=== PATIENT | female | born 1960 | race Caucasian/White ===

== ENCOUNTER → 2018-09-05 09:51 | Outpatient (CLI) | payer OTHER, SELFPAY ==
--- NOTE | 2018-09-05 10:05 | EKG12_ITS ---
Test Reason : PREOP Blood Pressure : / mmHG Vent. Rate : 054 BPM Atrial Rate : 054 BPM P-R Int : 168 ms QRS Dur : 106 ms QT Int : 412 ms P-R-T Axes : -13 -48 -02 degrees QTc Int : 390 ms Sinus bradycardia Left anterior fascicular block Poor R wave progression Nonspecific T wave abnormality Abnormal ECG Confirmed by YONATAN PRIEST, KIT ([id number]), telegraph editor DIONISIO HOGAN ([id number]) on 09/07/2018 1:33:57 PM Referred By: Kemal Tran Confirmed By:KIT TAM MD
[2018-09-05 10:27] LABS: Absolute Lymphocyte Count 2.03 X10^3/ul (0.83-4.51); Absolute Neutrophil Count 4.8 X10^3/uL (2.0-7.7); Basophil# 0.01 X10^3/uL; Basophil% 0.1 % (0-1); Eosinophil# 0.13 X10^3/uL; Eosinophils% 1.7 % (0-5); Hematocrit 41.1 % (37-47); Hemoglobin 13.6 g/dl (12.0-15.0); Lymphocyte # 2.03 X10^3/ul (4.0); Lymphocyte % 26.7 % (19-41); Mean Corp Hgb Conc 33.1 g/gl (32-36); Mean Corpuscular Hgb 30.4 pg (27.0-32.0); Mean Corpuscular Volume 91.7 fL (81-99); Mean Platelet Vol. 9.4 fl (6.2-12.0); Monocyte# 0.64 X10^3/uL; Monocyte% 8.4 % (0-10); Neutrophil # 4.77 X10^3/uL (2.7-7.7); Neutrophil % 62.7 % (47-70); Platelet Count 220 K/mm3 (150-450); RBC Distribution Width CV 13.8 % (11.6-14.6); RBC Distribution Width SD 45.8 fl (35.1-43.9); Red Blood Count 4.48 M/mm3 (4.2-5.4); White Blood Count 7.6 K/mm3 (4.4-11.0)
[2018-09-05 10:29] LABS: POSITIVE COUNT NO; POSITIVE DIFFERENTIAL NO; POSITIVE MORPHOLOGY NO
[2018-09-05 10:51] LABS: Anion Gap 6 (5-15); BUN 16 mg/dL (7-18); BUN/Creat Ratio 21.8 RATIO (10-20); Calcium,Total 9.3 mg/dL (8.5-10.1); Chloride 108 mmol/L (98-107); Creatinine, Serum 0.73 mg/dL (0.55-1.02); EST Glomerular Filtration Rate 86 mL/min (>60); Est Glom Filt Rate - Afr Amer 104 mL/min (>60); Glucose 85 mg/dL (74-106); Potassium 4.1 mmol/L (3.5-5.1); Sodium Level 142 mmol/L (136-145)
== END ==
PROVIDERS: Family Provider Family Medicine; PCP Family Medicine; Referring Provider Surgery; Visit Provider Surgery
DX: Z01.810 Encounter for preprocedural cardiovascular examination (principal); I87.2 Venous insufficiency (chronic) (peripheral); I83.11 Varicose veins of right lower extremity with inflammation; M79.661 Pain in right lower leg; M79.89 Other specified soft tissue disorders
CPT/HCPCS: 36415; 80048; 85025; 93005

== ENCOUNTER → 2018-09-18 13:53 | Outpatient (CLI) | payer OTHER, SELFPAY ==
--- NOTE | 2018-09-18 13:57 | VDLE_ITS ---
Reason For Study: RLE Pain RIGHT LEFT CFV is compressible, spontaneous, phasic, CFV is compressible, spontaneous, phasic, competent and demonstrates normal competent, and demonstrates normal augmentation. augmentation. FV is compressible, spontaneous, phasic, competent and demonstrates normal augmentation. POP V is compressible, spontaneous, phasic, competent and demonstrates normal augmentation. T/P Trunk is compressible. PTV is compressible. RT PerV is compressible. GVS, SSV and Vein of Giacomini are occluded s/p EVLA. Procedure Exam performed in department. A preliminary report was called and/or faxed to Dr. Tran. <> Interpretation Summary Deep veins of the right lower extremity are patent and compressible segmentally. There is no evidence of right lower extremity deep vein thrombosis. Valvular competence appears intact within the proximal deep venous system on the right . The right great saphenous vein, small saphenous vein, and vein of Giacomini are occluded, consistent with a recent endothermal ablation procedure. Ordering Physician: Tam Reyna Referring Physician: Kemal Tran Performed By: Miguel Daniel RVT and Student
== END ==
PROVIDERS: Family Provider Family Medicine; PCP Family Medicine; Referring Provider Surgery; Visit Provider Surgery
DX: I87.2 Venous insufficiency (chronic) (peripheral) (principal); I83.10 Varicose veins of unspecified lower extremity with inflammation; M79.609 Pain in unspecified limb; Z98.890 Other specified postprocedural states
CPT/HCPCS: 93971

== ENCOUNTER → 2018-11-29 13:27 | Outpatient (CLI) | payer OTHER, SELFPAY ==
[2018-12-04 16:51] LABS: HPV HC, High Risk Negative (Negative)
--- OUTSIDE RECORDS SUMMARY | 2019-02-03 08:01 | XMS RPT_ITS ---
:1960 Author Organization OHIP Care Team Providers Name Role Phone Ramón Meier Attending Unavailable Axel, Tam A Referring Unavailable Axel, Tam A Primary Care Unavailable Ramón Meier Attending Unavailable Axel, Tam Sandoval Primary Care Unavailable Axel, Tam A Admitting Unavailable Axel, Tam A Attending Unavailable Axel, Tam A Primary Care Unavailable Axel, Tam Primary Care Unavailable Nova [place] Attending Unavailable Kemal Tran Attending Unavailable Tam Reyna Primary Care Unavailable Kemal Tran Referring Unavailable Kemal Tran Attending Unavailable Kemal Tran Referring Unavailable Tam Reyna Primary Care Unavailable Akira Tam Attending Unavailable Kemal Tran Referring Unavailable PROBLEMS PROBLEMS DATE TYPE CONDITION / CODE ATTENDING STATUS SOURCE 11/29/2018 Unknown Z12.4 - Encounter for Nova Gillette Active [place] screening for Community malignant neoplasm of Hospital cervix / Z12.4(ICD-10) Repository 09/05/2018 Unknown Z01.810 - Encounter Kemal Tran Active [place] for preprocedural [facility] cardiovascular [facility] examination / Repository Z01.810(ICD-10) 09/05/2018 Unknown I87.2 - Venous Kemal Tran Active [place] insufficiency Community (chronic) (peripheral) Hospital / I87.2(ICD-10) Repository 09/05/2018 Unknown I83.11 - Varicose Kemal Tran Active [place] veins of right lower Community extremity with Hospital inflammation / Repository I83.11(ICD-10) 09/05/2018 Unknown M79.661 - Pain in Kemal Tran Active [place] right lower leg / Community M79.661(ICD-10) Hospital Repository 09/05/2018 Unknown M79.89 - Other Kemal Tran Active [place] specified soft tissue Community disorders / Hospital M79.89(ICD-10) Repository 09/26/2018 Unknown R00.1 - Bradycardia, [place], Active [place] unspecified / [facility] R00.1(ICD-10) Hospital Repository 09/26/2018 Unknown R94.31 - Abnormal [place], Active [place] electrocardiogram [facility] [ECG] [EKG] / Hospital R94.31(ICD-10) Repository PROCEDURES PROCEDURES No Procedure Records FoundRESULTS RESULTS PAP I-G HPV HI Collected: 11/29/2018 Status: F Source: [place] RISK 1:30 PM [facility] REPOSITORY Order Comment: CYTOLOGY INFORMATION: - CLINICAL INFORMATION: POSTMENOPAUSAL - DATE LMP/MENOPAUSE: MENOPAUSE - COLLECTION VIAL: Thin Prep Vial - PROGRESSIVE CARE UNIT REGISTERED NURSE SOURCE:CERVIX CERVICAL - COLLECTION TECHNIQUE:CERVIX BROOM CX BROOM ONLY Specimen Comment: [id number] Specimen Comment: Source.............Cervix Specimen Comment: Other..............Post Menopausal Specimen Comment: No. of containers..01 ThinPrep Vial TYPE CODE TESTS RESULT OUT OF RANGE REFERENCE UNITS LAB L7400.0800 . Normal DIAGN Comment Result Comment: NEGATIVE FOR INTRAEPITHELIAL LESION OR MALIGNANCY. LAB L7400.0900 . Normal ADEQ Comment Result Comment: Satisfactory for evaluation. Endocervical and/or squamous metaplastic cells (endocervical component) are present. LAB L7400.1400 . Normal PERFORM Comment Result Comment: Jessica Hernandez, Applique Cutter LAB L7400.2575 . Normal TEST METHOD Comment Result Comment: This liquid based ThinPrep(R) pap test was screened with the use of an image guided system. LAB L7400.2600 . Normal . COMM LAB L7400.2700 . Normal PAPSMR Comment Result Comment: The Pap smear is a screening test designed to aid in the detection of premalignant and malignant conditions of the uterine cervix. It is not a diagnostic procedure and should not be used as the sole means of detecting cervical cancer. Both false-positive and false-negative reports do occur. LAB L7400.2950 Negative Normal HPV Negative HC,HGH RISK Result Comment: This high-risk HPV test detects thirteen high-risk types (16/18/31/33/35/39/45/51/52/56/58/59/68) without differentiation. Performed at: - [facility] [id number] Manager Cath Lab: Ashlee Perkins MD, Phone: [phone] Performed at: =G - [facility] [address] [id number] Manager Cath Lab: Ashlee Perkins MD, Phone: [phone] Performed By: #### L7400.0375 #### [facility] (refer to report for specific site) refer to report for address and phone number VENOUS DUPLEX LOWER Observed: 09/18/2018 Status: F Source: [place] EXTREMITY 4:32 PM [facility] Cardiovascular Services [address] [place] [address] Venous Duplex US, Unilateral 09/18/18 1400 MR#: [id number] Acct: [id number] Name: IGOR SANDOVAL Rep #: [id number] : 1960 58 From: Kemal Tran MD Attending Dr: Kemal Tran MD Status: REG CLI Ordering Dr: Kemal Tran MD Date: 09/18/18 Location: [facility] Sex: F C Admitted: Reason For Study: RLE Pain RIGHT LEFT CFV is compressible, spontaneous, phasic, CFV is compressible, spontaneous, phasic, competent and demonstrates normal competent, and demonstrates normal augmentation. augmentation. FV is compressible, spontaneous, phasic, competent and demonstrates normal augmentation. POP V is compressible, spontaneous, phasic, competent and demonstrates normal augmentation. T/P Trunk is compressible. PTV is compressible. RT PerV is compressible. GVS, SSV and Vein of Giacomini are occluded s/p EVLA. Procedure Exam performed in department. A preliminary report was called and/or faxed to Dr. Tran. <> Interpretation Summary Deep veins of the right lower extremity are patent and compressible segmentally. There is no evidence of right lower extremity deep vein thrombosis. Valvular competence appears intact within the proximal deep venous system on the right . The right great saphenous vein, small saphenous vein, and vein of Giacomini are occluded, consistent with a recent endothermal ablation procedure. Ordering Physician: Tam Reyna Referring Physician: Kemal Tran Performed By: Miguel Daniel RVT and Student 09/18/18 1631 Date Kemal Tran MD CC: Kemal Tran MD; Tam Reyna DO Date Dictated: 09/18/18 1400 Date Transcribed: 09/18/18 1631 [employer] Helper: Signed 12 LEAD ELECTROCARDIOGRAM Observed: 09/07/2018 Status: F Source: [place] 1:34 PM [facility] Cardiovascular Services [address] [place] [address] 12 Lead EKG 09/05/18 1010 MR#: [id number] Acct: [id number] Name: IGOR SANDOVAL Rep #: [id number] : 1960 58 From: Akira Tam MD Attending Dr: Kemal Tran MD Status: REG CLI Ordering Dr: Kemal Tran MD Date: 09/05/18 Location: LAB.FUTURE Sex: F C Admitted: Test Reason : PREOP Blood Pressure : / mmHG Vent. Rate : 054 BPM Atrial Rate : 054 BPM P-R Int : 168 ms QRS Dur : 106 ms QT Int : 412 ms P-R-T Axes : -13 -48 -02 degrees QTc Int : 390 ms Sinus bradycardia Left anterior fascicular block Poor R wave progression Nonspecific T wave abnormality Abnormal ECG Confirmed by YONATAN PRIEST, AKIRA ([id number]), school photograph editor DIONISIO HOGAN ([id number]) on 09/07/2018 1:33:57 PM Referred By: Kemal Tran Confirmed By:AKIRA TAM MD 09/07/18 1334 Date Akira Tam MD CC: Kemal Tran MD; Tam Reyna DO Signed CBC W/DIFF, AUTOMATED Collected: 09/05/2018 Status: F Source: [place] 9:58 AM [facility] [place] TYPE CODE TESTS RESULT OUT OF RANGE REFERENCE UNITS LAB L100.1000 4.4-11.0 K/mm3 Normal WBC 7.6 LAB L100.1200 4.2-5.4 M/mm3 Normal RBC 4.48 LAB L100.1300 12.0-15.0 g/dl Normal HGB 13.6 LAB L100.1400 37-47 % Normal HCT 41.1 LAB L100.1500 81-99 fL Normal MCV 91.7 LAB L100.1600 27.0-32.0 pg Normal MCH 30.4 LAB L100.1700 32-36 g/gl Normal MCHC 33.1 LAB L100.1810 11.6-14.6 % Normal RDW CV 13.8 LAB L100.1820 35.1-43.9 fl High RDW SD 45.8 LAB L100.1900 150-450 K/mm3 Normal PLT 220 LAB L100.2000 6.2-12.0 fl Normal MPV 9.4 LAB L100.2100 47-70 % Normal NEUT% 62.7 LAB L100.2200 19-41 % Normal LY% 26.7 LAB L100.2300 0-10 % Normal MONO% 8.4 LAB L100.2400 0-5 % Normal EO% 1.7 LAB L100.2500 0-1 % Normal BASO% 0.1 LAB L100.2550 0.0-0.9 % Normal IM GRAN % 0.400 Result Comment: IG% - Immature Granulocytes (promyelocytes, myelocytes and metamyelocytes) > 1% indicates that a LEFT SHIFT is Present. LAB L100.2620 2.0-7.7 X10 3/uL Normal Absolute Neut 4.8 LAB L100.2720 0.83-4.51 X10 3/ul Normal Absolute Lymph 2.03 Performed By: #### L100.0100 #### [facility] [address] [place], [address] BASIC METABOLIC Collected: 09/05/2018 Status: F Source: [place] PROFILE (BMP) 9:58 AM [facility] TYPE CODE TESTS RESULT OUT OF RANGE REFERENCE UNITS LAB L501.0100 74-106 mg/dL Normal GLU 85 Result Comment: Please note revised GLUCOSE reference range effective 2017. LAB L501.1000 7-18 mg/dL Normal BUN 16 LAB L501.1100 0.55-1.02 mg/dL Normal CREAT,SERUM 0.73 Result Comment: The validity of the calculated GFR AND GFRAA in patients over 70 years has not been determined. Clinical correlation is essential. LAB L501.1110 >60 mL/min Normal EST GFR 86 Result Comment: Non- GFR Calc LAB L501.1115 >60 mL/min Normal EST GFR - AA 104 Result Comment: GFR Calc LAB L501.1300 10-20 RATIO High BUN/CRE 21.8 LAB L501.2200 8.5-10.1 mg/dL CA Normal 9.3 LAB L501.5300 136-145 mmol/L NA Normal 142 LAB L501.5600 3.5-5.1 mmol/L K Normal 4.1 LAB L501.5900 98-107 mmol/L High CL 108 LAB L501.6100 21.0-32.0 mmol/L Normal CO2 28.0 LAB L501.6200 5-15 Normal GAP 6 Performed By: #### L500.2500 #### [facility] [place], [address] US THYROID Observed: 02/14/2018 Status: F Source: [facility] 1:30 PM [facility] REPOSITORY Exam Date/Time: 02/14/2018 14:04 EDT Reason for Exam: THYROID NODULE SCREENING Report US THYROID CLINICAL STATEMENT: Suspected right thyroid nodule. TECHNIQUE: Longitudinal and transverse plane sonograms of the thyroid are acquired. Additional scanning in the left neck at the site of patient reported discomfort was performed. FINDINGS: The right and left thyroid lobes are respectively measuring 5.6 and 4.7 cm pole to pole. The isthmus is measuring 3 mm in the midline. There is a small parallel oriented anechoic fluid collection in the lower pole of the right lobe, measuring 0.3 x 0.3 x 0.2 cm, likely a colloid cyst. Echotexture of the entire left lobe is uniform and normal. In the area of patient's clinical concern, in the right neck, there is a non pathologically enlarged lymph node identified. No other neck mass or adenopathy is identified locally. IMPRESSION: 1. Thyroid ultrasound study show the gland size is mildly enlarged. Small colloid cyst in the lower pole of the right gland. 2. Small non pathologically enlarged lymph node in the right neck, area of clinical concern. FINAL REPORT Dictated: 02/15/2018 9:10 am Jose Miguel Khan DO Signed (Electronic Signature): 02/15/2018 9:10 am Signed by: Jose Miguel Khan DO Technologist: ARUN FENTON MAMM SCREEN W/CAD Observed: 02/14/2018 Status: F Source: [facility] IF PERFORMED BILAT 1:08 PM [facility] REPOSITORY Exam Date/Time: 02/14/2018 13:16 EDT Reason for Exam: THYROID NODULE SCREENING Report BILATERAL DIGITAL SCREENING MAMMOGRAMS WITH CAD [employer] V2.1.3.1 HISTORY: Screening. COMPARISON: 01/10/2017, 07/29/2015, and 10/26/2011. FINDINGS: The breasts are fatty. The parenchyma is symmetrical. No spiculated density, clustered microcalcification, mass lesion, or architectural distortion is seen. There is no nipple retraction present. The skin thickness is normal. IMPRESSION: Fatty breasts. Stable breast parenchyma from prior studies. BI-RADS 2 - Benign, no evidence of malignancy. Normal interval followup is recommended in 12 months. OVERALL ASSESSMENT- BENIGN A letter of notification will be sent to the patient regarding the results. Assessment / Recommendation: 2-1 Normal interval follow-up Breast density: Fatty Density Recall interval: 012 months FINAL REPORT Dictated: 02/14/2018 4:21 pm Malcolm Juan MD Signed (Electronic Signature): 02/14/2018 4:21 pm Signed by: Malcolm Juan MD Technologist: VIANEY Assessment: BI-RADS Category 2-Benign finding Recommendation: Normal interval follow-up ALLERGIES ALLERGIES DATE TYPE / CODE NAME / CODE REACTION SEVERITY SOURCE 09/01/2016 Drug Penicillins/[id number] Rash Unknown [place] Allergy/416 0476(RXNORM) [facility] 401659([facility]) Repository Drug/665236 penicillins [id number] [facility] 003([facility]) System Repository ENCOUNTERS ENCOUNTERS ADMIT/DISCHARGE ACCOUNT NUMBER ADMITTING ENCOUNTER LOCATION SOURCE CLASS 11/29/2018 [id number] [facility] ding:BFHLAB Repository 11/21/[id number] [facility] ding:[facility] ACM Repository 09/18/2018 [id number] [facility] ding:[facility] Repository 09/05/2018 [id number] [facility] ding:LAB.FUT Repository URE 09/05/2018 [id number] Ambulatory BMSBuilding: [facility] Repository 04/05/2018/04/05/20 [id number] Ambulatory [place] [address] DOBuilding:[facility] Repository 02/14/2018/02/15/[address] ding:[facility] System Repository PAYERS PAYERS ENCOUNTER GUARANTOR PAYER SUBSCRIBER SOURCE 11/29/2018 IGOR L Primary IGOR L [place] [id number] Insurance:[facility]: [facility] [id number] [id number] Number: Repository [address]Jbm: [phone] [phone] () Date:3382-94-34[address], [place] [address]HK: 11/29/2018 Secondary NOT GIVENUNK [place] Insurance:SELF PAY [facility] Number: Effective Repository Date:2018-11-29 11/21/2018 IGOR L Primary IGOR L [facility] HARPSTERDOB: Insurance:[facility]DOB: [facility] [id number] System RIDGE Number: Effective [place], [place] Date:2018-11-21 [place] [address]Izv: [id number] [phone]: Name:CD:[id number] [address] () [address] [place] [address] ()Tel: [phone] DJ [phone]: () [phone] 09/18/2018 IGOR L Primary IGOR L [place] [id number] Insurance:[facility]: [facility] [address]Pjlvdf [id number] [place] Number: Repository [phone]: [id number] [phone] (HP) Date:8600-54-87FH [address], [place] [address]ZZ: 09/18/2018 Secondary NOT GIVENUNK [place] Insurance:SELF PAY [facility] Number: Effective Repository Date:2018-09-18 09/05/2018 Igor Primary Igor [place] [id number] Insurance:UNITED HLTH HarpsterDOB: [facility] [address]Zctiad [id number] [place] Number: Repository [address]Paa: [id number] [phone] () Date:4401-25-94YB [facility] [address]W[place]BBVGI, [place] [address]XC: 09/05/2018 Secondary NOT GIVENUNK [place] Insurance:SELF PAY [facility] Number: Effective Repository Date:2018-08-29 09/05/2018 IGOR L Primary IGOR L [place] [id number] Insurance:[facility]: [facility] [id number] [id number] [place], [place] Number: Repository [address]Pxh: [phone] [phone] () Date:1011-63-41XU [facility] [address]23[address]YFGHZIQ, [place] [address]OZ: 09/05/2018 Secondary NOT GIVENUNK Andrea Insurance:SELF PAY [facility] Number: Effective Repository Date:2018-09-05 04/05/2018 IGOR L Primary IGOR L [facility] HARPSTERDOB: Insurance:[facility] [id number] System RIDGE Number: Effective [facility] [place] Date:2018-02-22 [place] [address]Mrd: [id number] [phone]: Name::[id number] BOX () [address]BLTH[facility] ()Tel: [phone] YH [phone]: () [phone] 02/14/2018 IGOR L Primary IGOR L [facility] HARPSTERDOB: Insurance:[facility]: [facility] HEALTHCAREPolicy [id number] System RIDGE Number: Effective RICKY OLSON [facility], [place] Date:2018-02-01 [place] [address]Ant: [id number] [address]Rvg: Name:CD:[id number] BOX (HP) [address]WZLOLANETT, ()Tel: [phone] [place] [phone]: ([phone]
== END ==
PROVIDERS: Family Provider Family Medicine; PCP Family Medicine; Visit Provider Family Medicine
DX: Z12.4 Encounter for screening for malignant neoplasm of cervix (principal)
CPT/HCPCS: 87624; 88175; G0145

== ENCOUNTER → 2019-03-04 | Outpatient (CLI) | payer OTHER, SELFPAY ==
--- NOTE | 2019-03-04 11:25 | RAD_ITS ---
STUDY: X-RAY CHEST REASON FOR EXAM: Female, 58 years old. Right side chest pain radiating through axillary area x5 days. TECHNIQUE: PA and lateral views of the chest. COMPARISON: None. FINDINGS: The lungs are clear and expanded. There is no evident pleural effusion. There is no pneumothorax. Normal size heart. Normal mediastinum and chandler. Normal visualized pulmonary arteries. There is atherosclerotic tortuosity of the aortic arch and descending thoracic aorta. There are diffuse degenerative changes of the visualized thoracic spine. There is no acute osseous abnormality. There is no demonstrated abnormality of the visualized soft tissue structures of the upper abdomen. RAD/Chest PA and Lateral IMPRESSION: There is no radiographically evident acute cardiopulmonary disease. Senescent changes of the descending thoracic aorta. Status post cholecystectomy. No evident fracture identified. Electronically Signed: Richard Denis MD at 15:29 EDT , Service support ,
== END | disposition home or self-care (01) ==
LOC: HPRAD 11:22
PROVIDERS: Family Provider Family Medicine; PCP Family Medicine; Referring Provider Family Medicine; Visit Provider Family Medicine
DX: R07.89 Other chest pain (principal)
CPT/HCPCS: 71046; A4216

== ENCOUNTER 2020-01-23 12:00 | Outpatient (RCR) | payer OTHER, SELFPAY ==
--- NOTE | 2020-01-10 09:24 | HP.PTEVAL_ITS ---
Patient's Visit Information IGOR SANDOVAL is a 59 year old F referred to Physical Therapy by Dr. Chase Sauceda MD with a diagnosis of BACK PAIN AND LEG PAIN. Date of Evaluation: 01/09/20 Physical Therapist: Addison Rachel, PT, Cert MDT, OCS - Visit Plan Frequency: 2x /Week Duration: 4 Weeks Plan: PT INTERVENTIONS DLS,POSTURAL EX'S ,LE FLEXABILITY ,BLE STRENGTHENING -HIP STRENGTHENING - Subjective Findings: This 59 y/o female presents to physical therapy with low back pain and leg pain. Mostly recently had bilateral THR 2017 and 2016. But prior to that patient had PT for lumbar stenosis from MRI but found out that bilateral DJD of hip joints. Patient noticed back pain became worse after surgery. Recommended pain management with epidural injections very 8 months to 12 months, last injection 2days ago..Located symmtrical radiates to left buttuck -hamstrings - calf -foot. Aggraveting factors walking,standing,bending,lifting which becomes constant even sitting. Alleviating factors injection. Coughing/sneezin g/straining +. C/O parathesia -tibia-foot. Symmptoms affecst sleeping. Symptoms affect QOL,function ,job demands ,job demnads. Patient symptoms affects QOL. SOCAIL: single. VOCATION: desk Realtor - Pain Bilateral Back Pain Intensity (Out of 10): 0 Pain Intensity Range: 10 - Objective POSTURE: rounded shoulders head foward. PALAPTION: tender ,L-S. NEURO: intact, reflexes L3-4,L4-5,L5-S1 1/3. GAIT: reciprocal pattern. MMT: quads/hams 4/5,4- /5 flexion ,hip abd 3+/5 ,ankle 4/5. MUSCULAR ENDURANCE: unble. FLEXABLITY: hams WFL - Special Tests L/S Slump test left side: Negative L/S Slump test right side: Negative L/S Left Straight Leg Raise: Negative L/S Right Straight Leg Raise: Negative Lumbar Standing: Flexion - Mechanical Response: No effect Lumbar Standing: Flexion - Symptoms During Testing: No effect Lumbar Standing: Flexion - Symptoms After Testing: No effect Lumbar Standing: Extension - Mechanical Response: No effect Lumbar Standing: Extension - Symptoms During Testing: Increases Lumbar Standing: Extension - Symptoms After Testing: No worse Lumbar Standing: Right Side [place] - Symptoms During Testing: No effect Lumbar Standing: Right Side [place] - Symptoms After Testing: No effect Lumbar Standing: Left Side [place] - Mechanical Response: No effect Lumbar Standing: Left Side [place] - Symptoms During Testing: No effect Lumbar Standing: Left Side [place] - Symptoms After Testing: No effect - Goals Goal 1:: Indepenant with HEP Goal Time Frame: 4-6 Weeks Goal 2:: Improve posture or ADL'S Goal Time Frame: 4-6 Weeks Goal 3:: Decrease lumbar pain and radiculars symptoms by 60 % or > to improve function and job demands Goal Time Frame: 4-6 Weeks Goal 4:: Patient to improve lumbar ROM for function of recovery Goal Time Frame: 4-6 Weeks Goal 5:: Patient to improve back owestrt score by 5 points > to improve function. Goal Time Frame: 4-6 Weeks - Rehabilitation Potential Physical Therapy Diagnosis: This patient has stenosis worse with activity with walking , standing ,bending ,lifting ,extending impairs ADLS' ,job dwemnads and housework tasks thus benifit from skilled PT Rehabilitation Potential: Good - Anticipated Interventions Patient/Client Instruction: Educate patient on: Condition, Plan of Care For the Purpose of:: To decrease pain, To increase ROM, To improve muscle performance and motor function, To increase tolerance to activity/condition/position, To improve ability of physical actions for home/community/work/leisure, To improve health of tissue, To decrease soft tiss ue restriction, To increase flexibility/ROM, To improve ability to perform tasks related to life management Therapeutic Exercise to Include: Strength training, Postural training, Flexibilty training, Dynamic Lumbar Stabilization For the Purpose of:: To decrease pain, To increase ROM, To improve muscle performance and motor function, To improve ability to perform ADL's, To increase tolerance to activity/condition/position, To improve ability of physical actions for home/community/work/leisure, To improve health of tissue, To decrease soft tissue restriction, To increase flexibility/ROM, To improve ability to perform tasks related to life management TENS: Yes IF ES: Yes Cryotherapy (ice pack, ice massage): Yes Thermo therapy (hot pack): Yes For the Purpose of:: To decrease pain, To increase ROM, To improve nutrient delivery to tissue, To increase oxygenation perfusion, To improve health of tissue, To decrease soft tissue restriction Thank you for the opportunity to evaluate your patient. For Medicare and Medicare HMO plans, please review the plan of care and approve it. It will need to be FAXED BACK to us at [phone] for Medicare purposes. For Medicare only, by signing this I certify the plan of care. Please let me know if there are questions or concerns regarding this plan of care. Physician Signature: _Date:
--- NOTE | 2020-03-04 08:51 | HP.PT.NRP ---
IGOR SANDOVAL was seen in my office for initial evaluation on 01/09/20. The following Plan of Care was established for this patient: Initial Frequency: 2x /Week Initial Duration: 4 Weeks Patient/Client Instruction: Educate patient on: Condition, Plan of Care For the Purpose of:: To decrease pain, To increase ROM, To improve muscle performance and motor function, To increase tolerance to activity/condition/position, To improve ability of physical actions for home/community/work/leisure, To improve health of tissue, To decrease soft tissue restriction, To increase flexibility/ROM, To improve ability to perform tasks related to life management Therapeutic Exercise to Include: Strength training, Postural training, Flexibilty training, Dynamic Lumbar Stabilization For the Purpose of:: To decrease pain, To increase ROM, To improve muscle performance and motor function, To improve ability to perform ADL's, To increase tolerance to activity/condition/position, To improve ability of physical actions for home/community/work/leisure, To improve health of tissue, To decrease soft tissue restriction, To increase flexibility/ROM, To improve ability to perform tasks related to life management TENS: Yes IF ES: Yes Cryotherapy (ice pack, ice massage): Yes Thermo therapy (hot pack): Yes For the Purpose of:: To decrease pain, To increase ROM, To improve nutrient delivery to tissue, To increase oxygenation perfusion, To improve health of tissue, To decrease soft tissue restriction This patient was last seen in our office . Pertinent comments regarding their Physical therapy will appear below: Patient seen for PT for back pain and prfovided HEP .thus is d/c At this point I will be discontinuing this patient from physical therapy. I would be happy to see this patient again in the future if found appropriate by the physician. Thank you! Addison Rachel, PT, Cert MDT, OCS
== END 2020-01-23 19:00 | disposition home or self-care (01) ==
LOC: PT 12:00
PROVIDERS: PCP Family Medicine; Referring Provider Anesthesiology Pain Medicine; Visit Provider Anesthesiology Pain Medicine
DX: M54.9 Dorsalgia, unspecified (principal); M79.606 Pain in leg, unspecified
CPT/HCPCS: 97110; 97162

== ENCOUNTER → 2021-04-06 08:28 | Outpatient (CLI) | payer OTHER, SELFPAY ==
--- NOTE | 2021-04-06 09:48 | RAD_ITS ---
STUDY: X-RAY CHEST REASON FOR EXAM: Female, 60 years old. Cough, mild SMOKER TECHNIQUE: PA and lateral views of the chest. COMPARISON: 03/04/2019 FINDINGS: The lungs are clear and expanded. There is no demonstrated pleural abnormality. Normal size heart. Normal mediastinum and chandler. Normal visualized pulmonary arteries. Normal visualized aortic arch and descending thoracic aorta. Normal visualized thoracic spine. Normal visualized ribs, clavicles, and shoulders. There is no demonstrated abnormality of the visualized soft tissue structures of the upper abdomen. RAD/Chest PA and Lateral IMPRESSION: No acute pulmonary process Electronically Signed: Thompson Mattson MD at 22:12 EDT , Service support ,
--- NOTE | 2021-04-06 10:17 | PFTCOMP ---
COMPLETE PULMONARY FUNCTION TEST INTERPRETATION Brief HPI: Patient is a 60 year old female, currently under the care of Dr. Reyna, who presents to [facility] for complete pulmonary function tests secondary to diagnosis of history of smoking. Respiratory therapist reports good effort and reproducible results. Interpretation: Forced expiration spirometry shows no large airways obstructive ventilatory defect with an FEV1 of 125% predicted. There is no significant bronchodilator response by strict ATS criteria. Spirograms are of good quality and plateau normally. The respiratory flow volume loop shows a normal pattern. Lung volumes by body plethysmography show an elevated total lung capacity at 4.47 L, 137% predicted. All other lung volumes are increased symmetrically. Diffusion capacity by carbon monoxide is normal at 71% predicted. The airway resistance is normal. No previous pulmonary function tests were available for review. Impression: Grossly normal pulmonary function test. Patient does have elevated lung volumes, but this may be a normal physiologic variant. Clinical correlation advised
== END ==
PROVIDERS: PCP Family Medicine; Referring Provider Family Medicine; Visit Provider Family Medicine
DX: R05 Cough (principal)
CPT/HCPCS: 71046; 94060; 94726; 94729